=== PATIENT | female | born 1940 | race Caucasian/White ===

== ENCOUNTER 2020-11-23 02:21 | Inpatient (IN) ==
[2020-11-23] MEDS ORDERED: MORPHINE 4 MG/1 ML VIAL IV STA ×2 (02:37→03:16)
[2020-11-23] MEDS ORDERED: ONDANSETRON 4 MG/2 ML VIAL IV STA (02:37)
[2020-11-23] MEDS ORDERED: NITROGLYCERIN 2% OINT 1 INCH/GM PACK TOP STA (02:37)
[2020-11-23] MEDS ORDERED: DILTIAZEM 50 MG/10 ML VIAL IV STA (02:37)
[2020-11-23] MEDS ORDERED: DILTIAZEM 25 MG/5 ML VIAL IV ONE (02:38)
[2020-11-23] MEDS ORDERED: SODIUM CHLORIDE 0.9% 1,000 ML IV STA (02:55)
[2020-11-23] MEDS ORDERED: DILTIAZEM INJ 100 MG in SODIUM CHLORIDE 0.9% 100 ML IV SCH (03:00)
[2020-11-23 03:05] LABS: Basophils % 0.1 % (0.0-0.8); Eosinophils # 0.5 10*3/uL (0.0-0.87); Eosinophils % 3.8 % (0.00-10.9); Hematocrit 35.6 VOL% (35.7-47.0); Hemoglobin 11.7 GM/DL (12.0-16.0); Immature Granulocytes % 0.8 %; Immature Granulocytes Absolute 0.11 #; Lymphocytes # 1.4 10*3/uL (1.4-4.0); Lymphocytes % 10.4 % (21.3-54.2); Mean Corpuscular HGB Conc 32.9 GM/DL (32-36); Mean Platelet Volume 12.2 FL (9.6-12.0); Monocytes % 9.5 % (1.7-12.7); Neutrophils % 75.4 % (38.7-73.9); Platelet Count 277 T/CUMM (130-400); Red Blood Count 3.71 MC/CUMM (3.8-5.5); Red Cell Distribution Width 15.2 % (9.3-17.3); White Blood Count 13.6 T/CUMM (4-12)
[2020-11-23 03:06] LABS: Albumin 2.3 G/DL (3.4-5.0); Bilirubin,Total 0.5 MG/DL (0.2-1.0); Calcium 9.2 MG/DL (8.5-10.1); Osmolality,Calculated 276.5 MOS/KG (273-304); Potassium 4.1 MMOL/L (3.5-5.1); Total Protein 7.7 G/DL (6.4-8.3)
[2020-11-23] MEDS ORDERED: METOPROLOL TARTRATE 5 MG/5 ML VIAL IV ONE (03:06)
[2020-11-23] MEDS ORDERED: METOPROLOL TARTRATE 5 MG/5 ML VIAL IV STA (03:06)
[2020-11-23 03:31] LABS: INR 13.1
[2020-11-23] MEDS ORDERED: PHYTONADIONE 5 MG/5 ML ORAL.SYR PO STA (03:50)
[2020-11-23] MEDS ORDERED: SODIUM CHLORIDE 0.9% 1,000 ML IV PRN (03:51)
[2020-11-23] MEDS ORDERED: FUROSEMIDE 20 MG/2 ML VIAL IV STA (04:04)
[2020-11-23] MEDS ORDERED: DEXTROSE 50% 25 GM/50 ML VIAL IV PRN (04:42)
[2020-11-23] MEDS ORDERED: GLUCAGON 1 MG VIAL IM PRN (04:42)
[2020-11-23] MEDS ORDERED: MORPHINE 4 MG/1 ML VIAL IV PRN (04:42)
[2020-11-23 05:39] LABS: Bacteria,Urine Occasional /HPF (Few); Bilirubin,Urine Negative (Negative); Blood, Urine Negative (Negative); Glucose,Urine (UA) Negative (Negative); Ketones,Urine 5 mg/dL (Negative); Mucus,Urine Occasional /LPF (Occasional); Nitrite,Urine Negative (Negative); Protein,Urine Negative; RBC,Urine 2 /HPF (0-4); Urine Appearance CLEAR (Clear); Urine Color Yellow (Yellow); Urine Specific Gravity 1.012 (1.001-1.035); Urine Urobilinogen < 2.0 EU/DL (0.2-1.0); WBC,Urine 1 /HPF (0-6)
[2020-11-23] MEDS ORDERED: AMIODARONE 150 MG/3 ML VIAL ONE (05:55)
[2020-11-23] MEDS ORDERED: AMIODARONE INJ 150 MG in DEXTROSE 5% 100 ML IV ONE (06:00)
[2020-11-23] MEDS ORDERED: AMIODARONE INJ 450 MG in DEXTROSE 5% 241 ML IV SCH ×2 (06:00→12:00)
[2020-11-23] MEDS: INSULIN REGULAR 100 UNIT/ML SUBCUT SCH ×4 (07:47→23:01)
[2020-11-23] MEDS: DILTIAZEM CD 120 MG CAPSULE PO SCH (09:50)
[2020-11-23 11:54] LABS: INR 4.1; PT Patient Result 40.5 SECS (9.8-11.9)
[2020-11-23] MEDS: AZITHROMYCIN INJ 500 MG in SODIUM CHLORIDE 0.9% 250 ML IV SCH (14:30)
[2020-11-23] MEDS: cefTRIAXone 1,000 MG in SYRINGE 1 EACH IV SCH (14:30)
[2020-11-23] MEDS: ACETAMINOPHEN 325 MG TABLET PO PRN ×2 (14:43→21:46)
[2020-11-23] MEDS: ALBUTEROL 2.5 MG/3 ML NEB RESP TX SCH (20:44)
[2020-11-23] MEDS: guaiFENesin/DM ER 600-30 MG TABLET PO SCH (21:46)
[2020-11-24] MEDS: ALBUTEROL 2.5 MG/3 ML NEB RESP TX SCH ×4 (02:42→19:18)
[2020-11-24 05:49] LABS: Basophils # 0.1 10*3/uL (0.0-0.2); Basophils % 0.4 % (0.0-0.8); Eosinophils # 0.3 10*3/uL (0.0-0.87); Eosinophils % 2.3 % (0.00-10.9); Hematocrit 29.6 VOL% (35.7-47.0); Immature Granulocytes % 0.8 %; Immature Granulocytes Absolute 0.11 #; Lymphocytes % 7.6 % (21.3-54.2); Mean Corpuscular HGB Conc 33.8 GM/DL (32-36); Mean Corpuscular Volume 95.2 FL (87-102); Mean Platelet Volume 11.8 FL (9.6-12.0); Neutrophils % 77.9 % (38.7-73.9); Platelet Count 256 T/CUMM (130-400); Red Blood Count 3.11 MC/CUMM (3.8-5.5); Red Cell Distribution Width 15.8 % (9.3-17.3); White Blood Count 13.2 T/CUMM (4-12)
[2020-11-24 06:11] LABS: Calcium 8.5 MG/DL (8.5-10.1); Osmolality,Calculated 283.1 MOS/KG (273-304); Potassium 4.4 MMOL/L (3.5-5.1)
[2020-11-24 06:15] LABS: Albumin 1.8 G/DL (3.4-5.0); Bilirubin,Total 0.7 MG/DL (0.2-1.0); Calcium 8.6 MG/DL (8.5-10.1); INR 3.6; Osmolality,Calculated 281.2 MOS/KG (273-304); PT Patient Result 35.7 SECS (9.8-11.9); Potassium 4.3 MMOL/L (3.5-5.1); Total Protein 6.8 G/DL (6.4-8.3)
[2020-11-24 07:13] LABS: Risk Ratio 3.29; VLDL CHOLESTEROL 17.4 MG/DL
[2020-11-24] MEDS: SOTALOL 80 MG TABLET PO SCH ×3 (09:04→22:01)
[2020-11-24] MEDS: DILTIAZEM CD 120 MG CAPSULE PO SCH (09:04)
[2020-11-24] MEDS: VITAMIN E 400 UNIT CAPSULE PO SCH (09:04)
[2020-11-24] MEDS: POTASSIUM CHLORIDE 20 MEQ PACK PO SCH (09:04)
[2020-11-24] MEDS: guaiFENesin/DM ER 600-30 MG TABLET PO SCH ×2 (09:05→21:55)
[2020-11-24] MEDS: ATORVASTATIN 40 MG TABLET PO SCH (09:05)
[2020-11-24] MEDS: INSULIN REGULAR 100 UNIT/ML SUBCUT SCH ×4 (09:05→21:54)
[2020-11-24] MEDS: INSULIN GLARGINE 100 UNIT/ML SUBCUT SCH (09:05)
[2020-11-24] MEDS ORDERED: METOPROLOL SUCCINATE XL 25 MG TABLET PO SCH (09:16)
[2020-11-24] MEDS: AZITHROMYCIN INJ 500 MG in SODIUM CHLORIDE 0.9% 250 ML IV SCH (15:47)
[2020-11-24] MEDS: cefTRIAXone 1,000 MG in SYRINGE 1 EACH IV SCH (15:48)
[2020-11-24] MEDS ORDERED: ONDANSETRON 4 MG/2 ML VIAL IV PRN (20:24)
[2020-11-25] MEDS: ALBUTEROL 2.5 MG/3 ML NEB RESP TX SCH ×4 (01:00→19:17)
[2020-11-25 05:59] LABS: Basophils % 0.2 % (0.0-0.8); Eosinophils # 0.3 10*3/uL (0.0-0.87); Eosinophils % 1.6 % (0.00-10.9); Hematocrit 29.8 VOL% (35.7-47.0); Hemoglobin 9.8 GM/DL (12.0-16.0); Immature Granulocytes % 1.2 %; Immature Granulocytes Absolute 0.19 #; Lymphocytes # 1.3 10*3/uL (1.4-4.0); Lymphocytes % 8.5 % (21.3-54.2); Mean Corpuscular HGB Conc 32.9 GM/DL (32-36); Mean Corpuscular Volume 96.1 FL (87-102); Mean Platelet Volume 11.2 FL (9.6-12.0); Monocytes % 9.2 % (1.7-12.7); Neutrophils % 79.3 % (38.7-73.9); Platelet Count 332 T/CUMM (130-400); Red Cell Distribution Width 15.7 % (9.3-17.3); White Blood Count 15.3 T/CUMM (4-12)
[2020-11-25 06:19] LABS: Calcium 8.6 MG/DL (8.5-10.1); Osmolality,Calculated 280.2 MOS/KG (273-304); Potassium 4.5 MMOL/L (3.5-5.1)
[2020-11-25 06:33] LABS: PT Patient Result 51.5 SECS (9.8-11.9)
[2020-11-25 06:51] LABS: INR 5.2
[2020-11-25 06:57] LABS: Band Neutrophils 2 % (0-10); Eosinophils 1 % (0-10); Lymphocytes 9 % (20-55); Platelet Estimate Normal; Segmented Neutrophils 75 % (50-85); Total Cells Counted 100
[2020-11-25 06:58] LABS: Anisocytosis 1+; Burr Cells Few
[2020-11-25 06:59] LABS: Polychromasia Slight
[2020-11-25] MEDS: POTASSIUM CHLORIDE 20 MEQ PACK PO SCH (09:21)
[2020-11-25] MEDS: ATORVASTATIN 40 MG TABLET PO SCH (09:21)
[2020-11-25] MEDS: DILTIAZEM CD 120 MG CAPSULE PO SCH (09:21)
[2020-11-25] MEDS: guaiFENesin/DM ER 600-30 MG TABLET PO SCH ×2 (09:22→20:39)
[2020-11-25] MEDS: INSULIN REGULAR 100 UNIT/ML SUBCUT SCH ×4 (09:22→21:43)
[2020-11-25] MEDS: SOTALOL 80 MG TABLET PO SCH ×2 (09:22→20:39)
[2020-11-25] MEDS: VITAMIN E 400 UNIT CAPSULE PO SCH (09:22)
[2020-11-25] MEDS: INSULIN GLARGINE 100 UNIT/ML SUBCUT SCH (09:23)
[2020-11-25] MEDS: AZITHROMYCIN INJ 500 MG in SODIUM CHLORIDE 0.9% 250 ML IV SCH (09:47)
[2020-11-25] MEDS: cefTRIAXone 1,000 MG in SYRINGE 1 EACH IV SCH (13:21)
[2020-11-26] MEDS: ALBUTEROL 2.5 MG/3 ML NEB RESP TX SCH ×4 (01:00→19:19)
[2020-11-26 05:16] LABS: Basophils % 0.3 % (0.0-0.8); Eosinophils # 0.5 10*3/uL (0.0-0.87); Eosinophils % 3.7 % (0.00-10.9); Hematocrit 29.8 VOL% (35.7-47.0); Hemoglobin 10.1 GM/DL (12.0-16.0); Immature Granulocytes % 1.8 %; Immature Granulocytes Absolute 0.23 #; Lymphocytes # 1.6 10*3/uL (1.4-4.0); Mean Corpuscular HGB Conc 33.9 GM/DL (32-36); Mean Corpuscular Volume 95.2 FL (87-102); Mean Platelet Volume 11.1 FL (9.6-12.0); Monocytes % 10.5 % (1.7-12.7); Neutrophils % 71.7 % (38.7-73.9); Platelet Count 377 T/CUMM (130-400); Red Blood Count 3.13 MC/CUMM (3.8-5.5); Red Cell Distribution Width 15.8 % (9.3-17.3); White Blood Count 13.1 T/CUMM (4-12)
[2020-11-26 05:34] LABS: Calcium 8.5 MG/DL (8.5-10.1); Osmolality,Calculated 278.2 MOS/KG (273-304); Potassium 4.7 MMOL/L (3.5-5.1)
[2020-11-26 07:31] LABS: PT Patient Result 60.3 SECS (9.8-11.9)
[2020-11-26 07:34] LABS: INR 6.2
[2020-11-26 08:55] LABS: Anisocytosis 1+; Burr Cells Few; Macrocytosis 1+; Ovalocytes Few; Platelet Estimate Normal; Spherocytes 1+
[2020-11-26 09:09] LABS: Alanine Aminotransferase 55 U/L (13-56); Albumin 1.5 G/DL (3.4-5.0); Alkaline Phosphatase 62 U/L (45-117); Aspartate Amino Transferase 73 U/L (0-37); Bilirubin,Direct < 0.100 MG/DL (0.0-0.20); Bilirubin,Indirect 0.3 MG/DL (0.0-1.0); Total Protein 6.6 G/DL (6.4-8.3)
[2020-11-26] MEDS: INSULIN REGULAR 100 UNIT/ML SUBCUT SCH ×5 (09:21→22:33)
[2020-11-26] MEDS: DILTIAZEM CD 120 MG CAPSULE PO SCH (09:22)
[2020-11-26] MEDS: INSULIN GLARGINE 100 UNIT/ML SUBCUT SCH (09:22)
[2020-11-26] MEDS: ATORVASTATIN 40 MG TABLET PO SCH (09:23)
[2020-11-26] MEDS: guaiFENesin/DM ER 600-30 MG TABLET PO SCH ×2 (09:23→22:32)
[2020-11-26] MEDS: AZITHROMYCIN INJ 500 MG in SODIUM CHLORIDE 0.9% 250 ML IV SCH (09:23)
[2020-11-26] MEDS: VITAMIN E 400 UNIT CAPSULE PO SCH (09:23)
[2020-11-26] MEDS: SOTALOL 80 MG TABLET PO SCH ×2 (09:23→22:32)
[2020-11-26] MEDS: POTASSIUM CHLORIDE 20 MEQ PACK PO SCH (09:23)
[2020-11-26] MEDS ORDERED: PHYTONADIONE 10 MG/1 ML AMP SUBCUT ONE (10:00)
[2020-11-26] MEDS: cefTRIAXone 1,000 MG in SYRINGE 1 EACH IV SCH (15:16)
[2020-11-26 21:46] LABS: PT Patient Result 51.3 SECS (9.8-11.9)
[2020-11-26 22:23] LABS: INR 5.2
[2020-11-27] MEDS: ALBUTEROL 2.5 MG/3 ML NEB RESP TX SCH ×4 (00:44→19:43)
[2020-11-27 05:50] LABS: Basophils # 0.1 10*3/uL (0.0-0.2); Basophils % 0.4 % (0.0-0.8); Eosinophils # 0.5 10*3/uL (0.0-0.87); Eosinophils % 3.6 % (0.00-10.9); Hematocrit 30.1 VOL% (35.7-47.0); Hemoglobin 9.8 GM/DL (12.0-16.0); Immature Granulocytes % 3.4 %; Immature Granulocytes Absolute 0.45 #; Lymphocytes # 1.8 10*3/uL (1.4-4.0); Lymphocytes % 13.6 % (21.3-54.2); Mean Corpuscular HGB Conc 32.6 GM/DL (32-36); Mean Corpuscular Volume 96.2 FL (87-102); Mean Platelet Volume 11.2 FL (9.6-12.0); Monocytes % 10.9 % (1.7-12.7); Neutrophils % 68.1 % (38.7-73.9); Platelet Count 428 T/CUMM (130-400); Red Blood Count 3.13 MC/CUMM (3.8-5.5); Red Cell Distribution Width 15.9 % (9.3-17.3); White Blood Count 13.2 T/CUMM (4-12)
[2020-11-27 05:52] LABS: INR 4.4
[2020-11-27 06:03] LABS: Calcium 8.1 MG/DL (8.5-10.1); Osmolality,Calculated 281.7 MOS/KG (273-304); Potassium 4.2 MMOL/L (3.5-5.1)
[2020-11-27 06:20] LABS: Band Neutrophils 1 % (0-10); Eosinophils 4 % (0-10); Lymphocytes 11 % (20-55); Myelocytes 3 %; Segmented Neutrophils 70 % (50-85); Total Cells Counted 100
[2020-11-27 06:21] LABS: Anisocytosis 1+; Burr Cells Few; Macrocytosis Slight; Ovalocytes Few; Platelet Estimate Normal
[2020-11-27] MEDS: INSULIN GLARGINE 100 UNIT/ML SUBCUT SCH (09:01)
[2020-11-27] MEDS: AZITHROMYCIN INJ 500 MG in SODIUM CHLORIDE 0.9% 250 ML IV SCH (09:01)
[2020-11-27] MEDS: POTASSIUM CHLORIDE 20 MEQ PACK PO SCH (09:01)
[2020-11-27] MEDS: ATORVASTATIN 40 MG TABLET PO SCH (09:02)
[2020-11-27] MEDS: SOTALOL 80 MG TABLET PO SCH ×2 (09:02→20:24)
[2020-11-27] MEDS: guaiFENesin/DM ER 600-30 MG TABLET PO SCH ×2 (09:02→20:24)
[2020-11-27] MEDS: DILTIAZEM CD 120 MG CAPSULE PO SCH (09:02)
[2020-11-27] MEDS: VITAMIN E 400 UNIT CAPSULE PO SCH (09:02)
[2020-11-27] MEDS: INSULIN REGULAR 100 UNIT/ML SUBCUT SCH ×4 (09:45→21:14)
[2020-11-27] MEDS: cefTRIAXone 1,000 MG in SYRINGE 1 EACH IV SCH (14:22)
[2020-11-27] MEDS ORDERED: VANCOMYCIN INJ 1,000 MG in SODIUM CHLORIDE 0.9% 250 ML IV SCH (14:30)
[2020-11-27] MEDS: VANCOMYCIN INJ 1,500 MG in SODIUM CHLORIDE 0.9% 500 ML IV ONE ×2 (16:43→16:55)
[2020-11-28] MEDS: ALBUTEROL 2.5 MG/3 ML NEB RESP TX SCH ×4 (01:44→18:51)
[2020-11-28] MEDS ORDERED: VANCOMYCIN INJ 1,250 MG in SODIUM CHLORIDE 0.9% 250 ML IV SCH (03:00)
[2020-11-28 06:45] LABS: Basophils # 0.1 10*3/uL (0.0-0.2); Basophils % 0.5 % (0.0-0.8); Eosinophils # 0.4 10*3/uL (0.0-0.87); Eosinophils % 3.4 % (0.00-10.9); Hematocrit 31.1 VOL% (35.7-47.0); Hemoglobin 10.3 GM/DL (12.0-16.0); Immature Granulocytes % 4.5 %; Immature Granulocytes Absolute 0.58 #; Lymphocytes # 1.6 10*3/uL (1.4-4.0); Lymphocytes % 12.2 % (21.3-54.2); Mean Corpuscular HGB Conc 33.1 GM/DL (32-36); Mean Corpuscular Volume 94.5 FL (87-102); Mean Platelet Volume 10.9 FL (9.6-12.0); Monocytes % 10.2 % (1.7-12.7); Neutrophils % 69.2 % (38.7-73.9); Platelet Count 462 T/CUMM (130-400); Red Blood Count 3.29 MC/CUMM (3.8-5.5); Red Cell Distribution Width 15.8 % (9.3-17.3)
[2020-11-28 07:06] LABS: Band Neutrophils 5 % (0-10); Eosinophils 3 % (0-10); Lymphocytes 11 % (20-55); Myelocytes 2 %; Segmented Neutrophils 68 % (50-85); Total Cells Counted 100
[2020-11-28 07:07] LABS: Anisocytosis 1+; Burr Cells 1+; Ovalocytes Few; Poikilocytosis Slight; Spherocytes Few
[2020-11-28 07:13] LABS: Calcium 8.1 MG/DL (8.5-10.1); Potassium 4.2 MMOL/L (3.5-5.1)
[2020-11-28] MEDS: INSULIN REGULAR 100 UNIT/ML SUBCUT SCH ×4 (08:18→21:20)
[2020-11-28] MEDS: AZITHROMYCIN INJ 500 MG in SODIUM CHLORIDE 0.9% 250 ML IV SCH (08:23)
[2020-11-28] MEDS: SOTALOL 80 MG TABLET PO SCH ×2 (08:24→21:20)
[2020-11-28] MEDS: INSULIN GLARGINE 100 UNIT/ML SUBCUT SCH (08:24)
[2020-11-28] MEDS: guaiFENesin/DM ER 600-30 MG TABLET PO SCH ×2 (08:24→21:20)
[2020-11-28] MEDS: ATORVASTATIN 40 MG TABLET PO SCH (08:24)
[2020-11-28] MEDS: VITAMIN E 400 UNIT CAPSULE PO SCH (08:24)
[2020-11-28] MEDS: POTASSIUM CHLORIDE 20 MEQ PACK PO SCH (08:29)
[2020-11-28 08:47] LABS: INR 2.6; PT Patient Result 26.6 SECS (9.8-11.9)
[2020-11-28] MEDS: LINEZOLID 600 MG TABLET PO SCH ×2 (12:38→21:24)
[2020-11-28] MEDS ORDERED: WARFARIN 3 MG TABLET PO SCH (18:00)
[2020-11-29] MEDS: ALBUTEROL 2.5 MG/3 ML NEB RESP TX SCH ×2 (01:29→07:30)
[2020-11-29 05:54] LABS: Basophils # 0.1 10*3/uL (0.0-0.2); Basophils % 0.6 % (0.0-0.8); Eosinophils # 0.4 10*3/uL (0.0-0.87); Eosinophils % 2.9 % (0.00-10.9); Hematocrit 29.3 VOL% (35.7-47.0); Hemoglobin 9.8 GM/DL (12.0-16.0); Immature Granulocytes % 3.9 %; Immature Granulocytes Absolute 0.55 #; Lymphocytes # 1.8 10*3/uL (1.4-4.0); Lymphocytes % 12.9 % (21.3-54.2); Mean Corpuscular HGB Conc 33.4 GM/DL (32-36); Mean Corpuscular Volume 94.8 FL (87-102); Mean Platelet Volume 10.8 FL (9.6-12.0); Neutrophils % 69.7 % (38.7-73.9); Platelet Count 446 T/CUMM (130-400); Red Blood Count 3.09 MC/CUMM (3.8-5.5); Red Cell Distribution Width 15.6 % (9.3-17.3); White Blood Count 13.9 T/CUMM (4-12)
[2020-11-29 06:02] LABS: INR 2.3
[2020-11-29 06:08] LABS: Potassium 4.2 MMOL/L (3.5-5.1)
[2020-11-29 06:22] LABS: Platelet Estimate Normal
[2020-11-29 06:26] LABS: Anisocytosis 1+; Burr Cells Few; Poikilocytosis 1+
[2020-11-29] MEDS: VITAMIN E 400 UNIT CAPSULE PO SCH (09:16)
[2020-11-29] MEDS: guaiFENesin/DM ER 600-30 MG TABLET PO SCH (09:16)
[2020-11-29] MEDS: POTASSIUM CHLORIDE 20 MEQ PACK PO SCH (09:16)
[2020-11-29] MEDS: ATORVASTATIN 40 MG TABLET PO SCH (09:16)
[2020-11-29] MEDS: INSULIN GLARGINE 100 UNIT/ML SUBCUT SCH (09:16)
[2020-11-29] MEDS: SOTALOL 80 MG TABLET PO SCH (09:16)
[2020-11-29] MEDS: INSULIN REGULAR 100 UNIT/ML SUBCUT SCH (09:17)
[2020-11-29] MEDS: LINEZOLID 600 MG TABLET PO SCH (09:21)
[2020-11-29 11:41] VITALS: BP 139/65
== END 2020-11-29 12:30 | disposition home health service (06) | DRG 308 ==
LOC: EDBD → EDUNIT# → N.ED 02:21 → N.EDINP 04:42 → SUATTDRO 04:42 → N.EDINP 12:38 → N.TELES 12:44
PROVIDERS: ADMIT Family Medicine; ATTEND Internal Medicine

== ENCOUNTER 2020-12-04 18:00 | Observation (INO) ==
[2020-12-04] MEDS ORDERED: ONDANSETRON 4 MG/2 ML VIAL IV STA (19:33)
[2020-12-04] MEDS ORDERED: FUROSEMIDE 100 MG/10 ML VIAL IV STA (19:33)
[2020-12-04 19:55] LABS: Albumin 1.7 G/DL (3.4-5.0); Bilirubin,Total 0.4 MG/DL (0.2-1.0); Calcium 8.3 MG/DL (8.5-10.1); Osmolality,Calculated 266.2 MOS/KG (273-304); Potassium 4.7 MMOL/L (3.5-5.1); Total Protein 7.3 G/DL (6.4-8.3)
[2020-12-04 19:58] LABS: Basophils # 0.1 10*3/uL (0.0-0.2); Basophils % 0.7 % (0.0-0.8); Eosinophils # 0.3 10*3/uL (0.0-0.87); Eosinophils % 3.1 % (0.00-10.9); Hematocrit 35.4 VOL% (35.7-47.0); Hemoglobin 11.3 GM/DL (12.0-16.0); Immature Granulocytes % 0.8 %; Immature Granulocytes Absolute 0.08 #; Lymphocytes # 1.9 10*3/uL (1.4-4.0); Lymphocytes % 17.9 % (21.3-54.2); Mean Corpuscular HGB Conc 31.9 GM/DL (32-36); Mean Corpuscular Volume 97.3 FL (87-102); Mean Platelet Volume 11.8 FL (9.6-12.0); Monocytes % 9.8 % (1.7-12.7); Neutrophils % 67.7 % (38.7-73.9); Platelet Count 378 T/CUMM (130-400); Red Blood Count 3.64 MC/CUMM (3.8-5.5); White Blood Count 10.5 T/CUMM (4-12)
[2020-12-04 20:13] LABS: PT Patient Result 56.5 SECS (9.8-11.9)
[2020-12-04 20:18] LABS: INR 5.8
[2020-12-04 20:44] LABS: Bilirubin,Urine Negative (Negative); Blood, Urine Negative (Negative); Glucose,Urine (UA) Negative (Negative); Ketones,Urine Negative (Negative); Mucus,Urine Occasional /LPF (Occasional); Nitrite,Urine Negative (Negative); Protein,Urine Negative; RBC,Urine <1 /HPF (0-4); Urine Appearance CLEAR (Clear); Urine Color Straw (Yellow); Urine Specific Gravity 1.006 (1.001-1.035); Urine Urobilinogen < 2.0 EU/DL (0.2-1.0); WBC,Urine 1 /HPF (0-6)
[2020-12-04] MEDS ORDERED: SIMETHICONE CHEW 125 MG TABLET PO PRN (21:54)
[2020-12-04] MEDS ORDERED: MAGNESIUM SULF RIDER 4 GM in PREMIX 1 EACH IV PRN (21:54)
[2020-12-04] MEDS ORDERED: ONDANSETRON 4 MG/2 ML VIAL IV PRN (21:54)
[2020-12-04] MEDS ORDERED: ALUMINUM/MAGNES/SIMETH MAX STR 30 ML UDCUP PO PRN (21:54)
[2020-12-04] MEDS ORDERED: MAGNESIUM SULF RIDER 2 GM in PREMIX 1 EACH IV PRN (21:54)
[2020-12-04] MEDS ORDERED: ACETAMINOPHEN 325 MG TABLET PO PRN (21:54)
[2020-12-04] MEDS ORDERED: GLUCAGON 1 MG VIAL IM PRN (21:54)
[2020-12-04] MEDS ORDERED: DEXTROSE 50% 25 GM/50 ML VIAL IV PRN (21:54)
[2020-12-04] MEDS ORDERED: ZALEPLON 5 MG CAPSULE PO PRN (21:54)
[2020-12-05] MEDS ORDERED: DEXTROSE 50% 25 GM/50 ML VIAL IV PRN (00:32)
[2020-12-05] MEDS ORDERED: GLUCAGON 1 MG VIAL IM PRN (00:32)
[2020-12-05 07:26] LABS: Basophils # 0.1 10*3/uL (0.0-0.2); Basophils % 0.6 % (0.0-0.8); Eosinophils # 0.2 10*3/uL (0.0-0.87); Eosinophils % 2.7 % (0.00-10.9); Hematocrit 30.4 VOL% (35.7-47.0); Hemoglobin 10.1 GM/DL (12.0-16.0); Immature Granulocytes % 0.5 %; Immature Granulocytes Absolute 0.04 #; Mean Corpuscular HGB Conc 33.2 GM/DL (32-36); Mean Corpuscular Volume 94.1 FL (87-102); Mean Platelet Volume 10.8 FL (9.6-12.0); Monocytes % 8.4 % (1.7-12.7); Neutrophils % 64.8 % (38.7-73.9); Platelet Count 405 T/CUMM (130-400); Red Blood Count 3.23 MC/CUMM (3.8-5.5); Red Cell Distribution Width 15.3 % (9.3-17.3); White Blood Count 8.6 T/CUMM (4-12)
[2020-12-05 07:43] LABS: Albumin 1.5 G/DL (3.4-5.0); Bilirubin,Total 1.2 MG/DL (0.2-1.0); Osmolality,Calculated 267.2 MOS/KG (273-304); Potassium 4.2 MMOL/L (3.5-5.1); Total Protein 6.6 G/DL (6.4-8.3)
[2020-12-05 07:50] LABS: PT Patient Result 59.4 SECS (9.8-11.9)
[2020-12-05 07:53] LABS: INR 6.1
[2020-12-05] MEDS ORDERED: FUROSEMIDE 40 MG/4 ML VIAL IV SCH (08:00)
[2020-12-05] MEDS: INSULIN REGULAR 100 UNIT/ML SUBCUT SCH ×4 (08:27→21:21)
[2020-12-05] MEDS: SOTALOL 80 MG TABLET PO SCH ×2 (09:13→21:20)
[2020-12-05] MEDS: PANTOPRAZOLE 40 MG TABLET PO SCH (09:13)
[2020-12-05] MEDS: ATORVASTATIN 40 MG TABLET PO SCH (09:13)
[2020-12-05] MEDS ORDERED: PHYTONADIONE 5 MG/5 ML ORAL.SYR PO ONE (10:09)
[2020-12-06 04:45] LABS: Basophils # 0.1 10*3/uL (0.0-0.2); Basophils % 0.8 % (0.0-0.8); Eosinophils # 0.4 10*3/uL (0.0-0.87); Eosinophils % 4.6 % (0.00-10.9); Hematocrit 29.4 VOL% (35.7-47.0); Hemoglobin 9.5 GM/DL (12.0-16.0); Immature Granulocytes % 0.6 %; Immature Granulocytes Absolute 0.05 #; Lymphocytes # 2.1 10*3/uL (1.4-4.0); Lymphocytes % 26.7 % (21.3-54.2); Mean Corpuscular HGB Conc 32.3 GM/DL (32-36); Mean Corpuscular Volume 96.4 FL (87-102); Mean Platelet Volume 10.7 FL (9.6-12.0); Monocytes % 9.9 % (1.7-12.7); Neutrophils % 57.4 % (38.7-73.9); Platelet Count 366 T/CUMM (130-400); Red Blood Count 3.05 MC/CUMM (3.8-5.5); Red Cell Distribution Width 15.6 % (9.3-17.3); White Blood Count 7.9 T/CUMM (4-12)
[2020-12-06 04:55] LABS: INR 1.5
[2020-12-06 05:06] LABS: Calcium 7.8 MG/DL (8.5-10.1); Osmolality,Calculated 276.8 MOS/KG (273-304); Potassium 3.7 MMOL/L (3.5-5.1)
[2020-12-06 08:11] VITALS: BP 151/51
[2020-12-06] MEDS: INSULIN REGULAR 100 UNIT/ML SUBCUT SCH ×2 (08:25→11:03)
[2020-12-06] MEDS: SOTALOL 80 MG TABLET PO SCH (08:46)
[2020-12-06] MEDS: ATORVASTATIN 40 MG TABLET PO SCH (08:47)
[2020-12-06] MEDS: PANTOPRAZOLE 40 MG TABLET PO SCH (08:47)
[2020-12-06] MEDS ORDERED: FUROSEMIDE 40 MG TABLET PO SCH (09:00)
== END 2020-12-06 13:55 | disposition home health service (06) ==
LOC: N.EDINP 18:00 → N.ED 18:00 → N.EDINP 12-05 00:02 → N.TELEN 12-05 00:44
PROVIDERS: ADMIT Internal Medicine; ATTEND Internal Medicine